=== PATIENT | male | born 1970 | race Caucasian/White ===

== ENCOUNTER → 2019-12-22 | Outpatient (REF) | payer OTHER | LOC: M SFHCLERA 16:11 | PROVIDERS: ATTEND Nurse Practitioner Family | DX: R53.81 Other malaise (principal) ==

== ENCOUNTER → 2023-11-20 | Outpatient (CLI) | payer OTHER, BC | LOC: M WUC 10:43 | PROVIDERS: ATTEND Physician Assistant | DX: R97.20 Elevated prostate specific antigen [PSA] (principal) ==